=== PATIENT | female | born 1980 | race Two or more races ===

== ENCOUNTER 2025-07-22 18:33 | Emergency (ER) | payer BC, OTHER ==
[~2025-07-22] VITALS: Ht 152.4 cm; Wt 79.2 kg
[2025-07-22 19:39] LABS: Hematocrit 37.9 % (36.0-46.0); Hemoglobin 13.2 g/dL (12.2-16.2); Mean Corpuscular Hemoglobin 29.8 pg (28.0-32.0); Mean Corpuscular Volume 85.5 fL (80.0-100.0); Nucleated Red Blood Cells % 0.0 %
[2025-07-22 19:55] LABS: Albumin 4.6 g/dL (3.2-4.8); Alkaline Phosphatase 102 U/L (46-116); Anion Gap 10 (5-15); BUN/Creatinine Ratio 9.5 (10.0-20.0); Blood Urea Nitrogen 9 mg/dL (9-23); Calcium 9.1 mg/dL (8.7-10.4); Carbon Dioxide 25 mmol/L (20-31); Chloride 104 mmol/L (98-107); Lipase 30 U/L (12-53); Potassium 3.6 mmol/L (3.5-5.1); Sodium 139 mmol/L (136-145); Total Protein 7.2 g/dL (5.7-8.2)
[2025-07-22 19:56] LABS: Alanine Aminotransferase 56 U/L (7-40); Bilirubin, Total 0.3 mg/dL (0.2-1.0); Glucose 134 mg/dL (74-106)
--- NOTE | 2025-07-22 20:04 | ED.PDOC ---
ICT HELP DESK OFFICER HPI Comments 45-year-old female who came to ER for abdominal pain. Patient is a , a pproximately 3-4 weeks . States she has started experiencing lower abdominal pain few hours ago. Denies any vaginal bleeding. Denies any nausea or vomiting Chief Complaint: Abdominal Pain Time Seen by MD: 20:03 Reviewed Notes: Nurses Notes Allergies: Coded Allergies: NO KNOWN ALLERGIES (Unverified , 07/22/25) Home Meds Active Scripts Cefdinir (Cefdinir) 300 Mg Cap, 1 CAP PO BID for 7 Days, #14 CAP Prov:BAILEY REEVES MD 07/22/25 Information Source: Patient Mode of Arrival: Ambulatory Timing: Hours Severity: Mild Vaginal Discharge: None Vaginal Lesions: None Vaginal Mass: None Sexual Activity: Associated Signs and Symptoms: Abdominal Pain Past Medical History PAST MEDICAL HISTORY: Denies Surgical History: Denies all surgeries A&P TECHNICIAN History: Denies all A&P TECHNICIAN Hx 8 Para 6 Family History Family History: Reviewed,noncontributory to illness Social History Smoker: Non-Smoker Alcohol: Denies ETOH Use Drugs: Denies Drug Use Lives In: Home Constitutional: denies: chills, diaphoresis, fatigue, fever, malaise, sweats, weakness, others EENTM: denies: blurred vision, double vision, ear bleeding, ear discharge, ear drainage, ear pain, ear ringing, eye pain, eye redness, hearing loss, mouth pain, mouth swelling, nasal discharge, nose bleeding, nose congestion, nose pain, photophobia, tearing, throat pain, throat swelling, voice changes, others Respiratory: denies: cough, hemoptysis, orthopnea, SOB at rest, shortness of breath, SOB with excertion, stridor, wheezing, others Cardiovascular: denies: chest pain, dizzy spells, diaphoresis, Dyspnea on exertion, edema, irregular heart beat, left arm pain, lightheadedness, palpitations, PND, syncope, others Gastrointestinal: reports: abdominal pain; denies: abdomen distended, blood streaked bowels, constipated, diarrhea, dysphagia, difficulty swallowing, hematemesis, melena, nausea, poor appetite, poor fluid intake, rectal bleeding, rectal pain, vomiting, others Genitourinary: denies: abnormal vagina bleeding, burning, dyspareunia, dysuria, flank pain, frequency, hematuria, incontinence, pain, , vagina discharge, urgency, others Neurological: denies: dizziness, fainting, headache, left sided numbness, left sided weakness, numbness, paresthesia, pre-existing deficit, right sided numbness, right sided weakness, seizure, speech problems, tingling, tremors, weakness, others Musculoskeletal: denies: back pain, gout, joint pain, joint swelling, muscle pain, muscle stiffness, neck pain, others Integumetry: denies: bruises, change in color, change in hair/nails, dryness, laceration, lesions, lumps, rash, wounds, others Allergic/Immunocompromised: denies: Difficulty Healing, Frequent Infections, Hives, Itching, others Hematologic/Lymphatic: denies: anemia, blood clots, easy bleeding, easy bruising, swollen glands, others Endocrine: denies: excessive hunger, excessive sweating, excessive thirst, excessive urination, flushing, intolerance to cold, intolerance to heat, unexplained weight gain, unexplained weight loss, others Psychiatric: denies: anxiety, bipolar disorder, depression, hopeless, panic disorder, schizophrenia, sleepless, suicidal, others Physical Exam General Appearance: No Apparent Distress, Normal HEENT: Normal ENT Inspection, Pharynx Normal, TMs Normal Neck: Full Range of Motion, Non-Tender, Normal, Normal Inspection Respiratory: Chest Non-Tender, Lungs Clear, No Accessory Muscle Use, No Respiratory Distress, Normal Breath Sounds Cardiovascular: No Edema, No JVD, No Murmur, No Gallop, Normal Peripheral Pulses, Regular Rate/Rhythm Breast Exam: Deferred Gastrointestinal: No Organomegaly, Non Tender, No Pulsatile Mass, Normal Bowel Sounds, Soft Genitalia: Deferred Pelvic: Deferred Rectal: Deferred Extremities: No calf tenderness, Normal capillary refill, Normal inspection, Normal range of motion, Non-tender, No pedal edema Musculoskeletal : Apperance: Normal Neurologic: Alert, plastic surgery technician II-XII nml as Tested, No Motor Deficits, Normal Affect, Normal Mood, No Sensory Deficits Cerebellar Function: Normal Reflexes: Normal Skin: Dry, Normal Color, Warm Lymphatic: No Adenopathy Was a procedure done? Was a procedure done?: No Differential Diagnosis (A&P TECHNICIAN) Vaginal Bleeding: - Missed, - Threatened, UTI Vaginal Discharge: X-Ray, Labs, Meds, VS Vital Signs Date Time Temp Pulse Resp B/P (MAP) Pulse Ox O2 Delivery O2 Flow Rate FiO2 07/22/25 23:01 97.8 70 18 108/72 (84) 98 97.8 07/22/25 18:35 98.0 82 16 125/76 98 98.0 Lab Test 07/22/25 19:08 07/22/25 18:30 Range/Units White Blood Count 9.2 4.4-10.8 10^3/uL Red Blood Count 4.43 4.0-5.20 10^6/uL Hemoglobin 13.2 12.2-16.2 g/dL Hematocrit 37.9 36.0-46.0 % Mean Corpuscular Volume 85.5 80.0-100.0 fL Mean Corpuscular Hemoglobin 29.8 28.0-32.0 pg Mean Corpuscular Hemoglobin Concent 34.8 32.0-36.0 g/dL Red Cell Distribution Width 13.5 11.8-14.3 % Platelet Count 265 140-450 10^3/uL Mean Platelet Volume 7.8 6.9-10.8 fL Neutrophils (%) (Auto) 66.3 37.0-80.0 % Lymphocytes (%) (Auto) 26.3 10.0-50.0 % Monocytes (%) (Auto) 5.1 0.0-12.0 % Eosinophils (%) (Auto) 2.0 0.0-7.0 % Basophils (%) (Auto) 0.3 0.0-2.0 % Neutrophils # (Auto) 6.1 1.6-8.6 10 ^3/uL Lymphocytes # (Auto) 2.4 0.4-5.4 10 ^3/uL Monocytes # (Auto) 0.5 0-1.3 10 ^3/uL Eosinophils # (Auto) 0.2 0-0.8 10 ^3/uL Basophils # (Auto) 0 0-0.2 10 ^3/uL Nucleated Red Blood Cells 0.0 % Sodium Level 139 136-145 mmol/L Potassium Level 3.6 3.5-5.1 mmol/L Chloride Level 104 98-107 mmol/L Carbon Dioxide Level 25 20-31 mmol/L Anion Gap 10 5-15 Blood Urea Nitrogen 9 9-23 mg/dL Creatinine 0.95 0.550-1.02 mg/dL Glomerular Filtration Rate Calc 76 >90 mL/min BUN/Creatinine Ratio 9.5 L 10.0-20.0 Serum Glucose 134 H 74-106 mg/dL Calcium Level 9.1 8.7-10.4 mg/dL Total Bilirubin 0.3 0.2-1.0 mg/dL Aspartate Amino Transferase (AST) 32 13-40 U/L Alanine Aminotransferase (ALT) 56 H 7-40 U/L Alkaline Phosphatase 102 46-116 U/L Total Protein 7.2 5.7-8.2 g/dL Albumin 4.6 3.2-4.8 g/dL Lipase 30 12-53 U/L Beta HCG, Quantitative 1447.1 H 1.5-4.2 mIU/mL Urine Color Colorless Yellow Urine Clarity Turbid H Clear Urine pH 6.0 5.0-9.0 Urine Specific [place] 1.006 1.001-1.035 Urine Protein Negative Negative Urine Ketones Negative Negative Urine Blood Negative Negative /uL Urine Nitrite Negative Negative Urine Bilirubin Negative Negative Urine Urobilinogen Normal Negative mg/dL Urine Leukocyte Esterase 2+ Negative /uL Urine RBC 4 0 - 4 /hpf Urine Microscopic WBC 8 H 0-5 /HPF Urine Squamous Epithelial Cells Mod <5 /hpf Urine Bacteria Few H None Seen /hpf Urine Glucose Normal Normal mg/dL Urine Test Positive Negative Current Medications Medications (Trade) Dose Ordered Sig/Pilar Route Start Time Stop Time Status Last Admin Cephalexin (Keflex Capsule) 500 mg ONCE ONCE PO 07/22/25 22:45 07/22/25 22:47 DC 07/22/25 23:13 Time of 1ST Reevaluation: 20:01 Reevaluation 1ST: Unchanged Patient Education/Counseling: Diagnosis, Treatment Family Education/Counseling: No Family Present Departure 1 Departure Time of Disposition: 22:00 Impression: Primary Impression: Abdominal pain in early Disposition: 01 HOME / SELF CARE / HOMELESS Condition: Stable e-Prescriptions Cefdinir (Cefdinir) 300 Mg Cap 1 CAP PO BID for 7 Days, #14 CAP Prov: BAILEY REEVES MD 07/22/25 Discharged With: Self Critical Care Note Critical Care Time?: No Stability Stability form required: No Heart Score Heart Score: Heart Score Response (Comments) Value History N/A 0 EKG N/A 0 Age N/A 0 Risk Factors N/A 0 Troponin N/A 0 Total 0 I personally scribed for BAILEY REEVES MD ([email or web address]) on 07/22/25 at 20:04. Electronically submitted by Jones Presley ([facility]). BAILEY REEVES MD Jul 22, 2025 20:04
[2025-07-22 21:09] LABS: Urine Protein, UAD Negative (Negative)
--- NOTE | 2025-07-22 21:55 | DVH ---
INDICATION: abd pain early preg TECHNIQUE: Multiple real-time grayscale transabdominal sonographic images along with color and duplex Doppler of the uterus and ovaries were obtained. COMPARISON: None FINDINGS: The uterus measures 7.5 by 4.6 x 4.6 cm cm. The endometrial stripe measures 15.3 mm. The right ovary not visualized The left ovary measures 2.8 x 2.3 x 2.9 cm. Volume of the left ovary is 9.8 cc 1.9 x 1.3 x 1.8 cm a nechoic lesion in the left ovary. Cystic areas in the endometrium out of range for estimating gestational age. There is no pole o r heart rate. IMPRESSION: 1. The endometrial stripe is thickened, measuring 15.3 mm, with cystic areas in the endometrium. 2. There is no pole or heart rate. 3. The left ovary 2.8 x 2.3 by 2.9 cm. Left ovary contains a contains a 1.9 x 1.3 x 1.8 cm anechoic l esion most likely a follicle. 4. The right ovary is not visualized.
[2025-07-22] MEDS ORDERED: CEFD300C2 PO (22:51)
[2025-07-22 23:01] VITALS: BP 108/72; PULSE 70; RESP 18; TEMP 97.8; O2SAT 98
[2025-07-22] MEDS: CEPHALEXIN 250 MG CAP PO ONE (23:13)
== END 2025-07-22 23:20 | disposition home or self-care (01) ==
LOC: ER 18:38
DX: O26.891 Other specified pregnancy related conditions, first trimester (principal); R10.30 Lower abdominal pain, unspecified; Z3A.01 Less than 8 weeks gestation of pregnancy
CPT/HCPCS: 36415; 76801; 80053; 81001; 81025; 83690; 84702; 85025